=== PATIENT | female | born 1940 | race Caucasian/White ===

== ENCOUNTER 2018-11-13 18:45 | Inpatient (IN) | payer SELFPAY ==
[~2018-11-13] VITALS: Ht 154.9 cm; Wt 96.8 kg
[2018-11-13] MEDS ORDERED: FURO40 PO (19:00)
[2018-11-13] MEDS ORDERED: RIVA10 PO (19:00)
[2018-11-13] MEDS ORDERED: ASPIRIN 81 MG CHEWABLE TABLET PO ONE (19:00)
[2018-11-13 19:22] LABS: EOSINOPHILS % (AUTO) 1.5 % (1.0-6.0); HEMATOCRIT 41.3 % (36-46); LYMPHOCYTES # (AUTO) 1.2 K/uL (1.0-4.8); LYMPHOCYTES % (AUTO) 22.9 % (22.0-44.0); MEAN CORPUSCULAR HEMOGLOBIN 33.9 pg (26.0-34.0); MEAN CORPUSCULAR HGB CONC 33.9 G/dL (31.0-37.0); MEAN CORPUSCULAR VOLUME 100 fL (80-100); MONOCYTES # (AUTO) 0.5 K/uL (0.1-1.0); MONOCYTES % (AUTO) 9.4 % (2.0-9.0); NEUTROPHILS # (AUTO) 3.3 K/uL (1.8-7.7); NEUTROPHILS % (AUTO) 65.2 % (40.0-70.0); RED BLOOD CELL COUNT(AUTO) 4.13 MIL/uL (4.00-5.20); RED CELL DISTRIBUTION WIDTH 14.3 % (11.5-14.5)
[2018-11-13 20:13] LABS: ANION GAP 10 mmol/L (8-16); CALCIUM, TOTAL 9.6 mg/dL (8.8-10.5); CARBON DIOXIDE 27 mmol/L (22-29); CHLORIDE 107 mmol/L (98-107); CREATININE 0.87 mg/dL (0.60-1.30); GLUCOSE,RANDOM 123 mg/dL (70-110); POTASSIUM 3.7 mmol/L (3.5-5.1); SODIUM SERUM 144 mmol/L (136-145); UREA NITROGEN, BLOOD 21 mg/dL (7-18)
[2018-11-13 20:15] LABS: GLOMERULAR FILTR. RATE CALC > 60 mL/min (>60)
[2018-11-13 20:20] LABS: ALANINE AMINOTRANSFERASE 25 U/L (12-78); ALBUMIN 3.4 g/dL (3.4-5.0); ALKALINE PHOSPHATASE 95 U/L (46-116); ASPARTATE AMINOTRANSFERASE 22 U/L (15-37); BILIRUBIN,TOTAL 0.7 mg/dL (0.1-1.0); CREATINE KINASE, TOTAL ONLY 46 U/L (26-192); TOTAL PROTEIN, SERUM 7.9 g/dL (6.4-8.2)
[2018-11-13 20:36] LABS: B-TYPE NATRIURETIC PEPTIDE 253 pg/mL (0-100)
[2018-11-13 20:48] LABS: PLATELET COUNT (AUTO) 89 K/uL (150-450)
[2018-11-13] MEDS ORDERED: IOVERSOL 320 MG/ML 100 ML VIAL ONE (21:33)
[2018-11-14] VITALS (7 sets, daily range): BP systolic 104–144; BP diastolic 68–83
[2018-11-14] MEDS ORDERED: ACETAMINOPHEN 325 MG TABLET PO PRN ×2 (01:30→02:15)
[2018-11-14] MEDS ORDERED: FUROSEMIDE 40 MG/4 ML VIAL IVP ONE (01:30)
[2018-11-14] MEDS ORDERED: 0.9% SODIUM CHLORIDE 10 ML SYRINGE IVP PRN (01:30)
[2018-11-14] MEDS ORDERED: OXYGEN THERAPY IH SCH (01:30)
[2018-11-14] MEDS ORDERED: ONDANSETRON HCL 4 MG/2 ML VIAL IVP PRN ×2 (01:30→02:15)
[2018-11-14] MEDS ORDERED: ZOLPIDEM TARTRATE 5 MG TABLET PO PRN (02:15)
[2018-11-14] MEDS ORDERED: IPRATROPIUM BROMIDE 0.5 MG/2.5 ML NEB SOLUTION NEB PRN (02:15)
[2018-11-14] MEDS ORDERED: ALBUTEROL SULFATE 2.5 MG/0.5 ML NEB SOLUTION NEB PRN (02:15)
[2018-11-14] MEDS ORDERED: MORPHINE SULFATE 2 MG/ML SYRINGE IVP PRN (02:15)
[2018-11-14] MEDS ORDERED: BISACODYL 10 MG RECTAL RECTAL SUPPOSITORY PR PRN (02:15)
[2018-11-14 02:40] LABS: APPEARANCE,URINE CLEAR (CLEAR); BILIRUBIN,URINE NEGATIVE (NEGATIVE); GLUCOSE, URINE (UA) NEGATIVE (NEGATIVE); KETONES,URINE NEGATIVE (NEGATIVE); LEUKOCYTE ESTERASE ,URINE NEGATIVE (NEGATIVE); NITRATE,URINE NEGATIVE (NEGATIVE); OCCULT BLOOD,URINE NEGATIVE (NEGATIVE); PROTEIN,URINE NEGATIVE (NEGATIVE)
[2018-11-14] MEDS: FAMOTIDINE 20 MG TABLET PO SCH (08:57)
[2018-11-14] MEDS: FUROSEMIDE 40 MG TABLET PO SCH (08:57)
[2018-11-14] MEDS: OxyCODONE HCL/ACETAMINOPHEN 5-325 MG TABLET PO PRN ×2 (08:57→16:42)
[2018-11-14] MEDS ORDERED: HEPARIN SODIUM,PORCINE 5,000 UNITS/ML VIAL SQ SCH (09:00)
[2018-11-14] MEDS ORDERED: RIVAROXABAN 10 MG TABLET PO SCH (18:00)
[2018-11-14] MEDS: MAGNESIUM HYDROXIDE SUSPENSION 30 ML UDCUP PO PRN (23:48)
[2018-11-15 04:16] VITALS: BP 101/50
[2018-11-15] MEDS: OxyCODONE HCL/ACETAMINOPHEN 5-325 MG TABLET PO PRN (04:48)
[2018-11-15 06:12] LABS: BASOPHILS % (AUTO) 0.3 % (0.0-2.0); EOSINOPHILS % (AUTO) 1.7 % (1.0-6.0); HEMATOCRIT 39.8 % (36-46); HEMOGLOBIN 13.5 g/dL (12.0-16.0); LYMPHOCYTES # (AUTO) 0.9 K/uL (1.0-4.8); LYMPHOCYTES % (AUTO) 20.3 % (22.0-44.0); MEAN CORPUSCULAR HEMOGLOBIN 34.1 pg (26.0-34.0); MEAN CORPUSCULAR HGB CONC 33.8 G/dL (31.0-37.0); MEAN CORPUSCULAR VOLUME 101 fL (80-100); MONOCYTES # (AUTO) 0.5 K/uL (0.1-1.0); MONOCYTES % (AUTO) 10.4 % (2.0-9.0); NEUTROPHILS # (AUTO) 3.1 K/uL (1.8-7.7); NEUTROPHILS % (AUTO) 67.3 % (40.0-70.0); PLATELET COUNT (AUTO) 73 K/uL (150-450); RED BLOOD CELL COUNT(AUTO) 3.94 MIL/uL (4.00-5.20); RED CELL DISTRIBUTION WIDTH 13.8 % (11.5-14.5)
[2018-11-15 06:17] LABS: INR 1.2 (0.9-1.1); PROTHROMBIN TIME 12.5 SEC (9.4-11.6)
[2018-11-15 06:58] VITALS: BP 116/70
[2018-11-15 06:58] LABS: ALANINE AMINOTRANSFERASE 66 U/L (12-78); ALBUMIN 3.2 g/dL (3.4-5.0); ALKALINE PHOSPHATASE 89 U/L (46-116); ANION GAP 4 mmol/L (8-16); ASPARTATE AMINOTRANSFERASE 70 U/L (15-37); BILIRUBIN,TOTAL 1.7 mg/dL (0.1-1.0); CALCIUM, TOTAL 8.9 mg/dL (8.8-10.5); CARBON DIOXIDE 33 mmol/L (22-29); CHLORIDE 99 mmol/L (98-107); CREATININE 0.76 mg/dL (0.60-1.30); GLUCOSE,RANDOM 104 mg/dL (70-110); PHOSPHORUS 3.5 mg/dL (2.5-4.9); POTASSIUM 3.9 mmol/L (3.5-5.1); SODIUM SERUM 136 mmol/L (136-145); TOTAL PROTEIN, SERUM 7.7 g/dL (6.4-8.2); UREA NITROGEN, BLOOD 18 mg/dL (7-18)
[2018-11-15 06:59] LABS: GLOMERULAR FILTR. RATE CALC > 60 mL/min (>60)
[2018-11-15 07:04] LABS: B-TYPE NATRIURETIC PEPTIDE 194 pg/mL (0-100)
[2018-11-15 07:21] LABS: HEMOGLOBIN A1C 5.5 % (4.5-6.2)
[2018-11-15] MEDS ORDERED: METOPROLOL SUCCINATE 25 MG ER TABLET PO SCH (09:00)
[2018-11-15] MEDS: FAMOTIDINE 20 MG TABLET PO SCH (09:36)
[2018-11-15] MEDS: FUROSEMIDE 40 MG TABLET PO SCH (09:36)
[2018-11-15 11:37] VITALS: BP 105/66
[2018-11-15] MEDS: MAGNESIUM HYDROXIDE SUSPENSION 30 ML UDCUP PO PRN (13:30)
[2018-11-15 14:59] VITALS: BP 112/72
[2018-11-15] MEDS ORDERED: METO25XL PO (17:09)
[2018-11-15] MEDS ORDERED: SLOWK8 PO (17:10)
== END 2018-11-15 18:00 | disposition home or self-care (01) | DRG 292 ==
LOC: EMS 18:46 → 5S 11-14 01:27
PROVIDERS: ADMIT Internal Medicine; ATTEND Internal Medicine
DX: I11.0 Hypertensive heart disease with heart failure (principal); Z68.41 Body mass index [BMI] 40.0-44.9, adult; I50.9 Heart failure, unspecified; D69.6 Thrombocytopenia, unspecified; R73.9 Hyperglycemia, unspecified; K57.90 Diverticulosis of intestine, part unspecified, without perforation or abscess without bleeding; E66.9 Obesity, unspecified; F41.9 Anxiety disorder, unspecified; Z82.49 Family history of ischemic heart disease and other diseases of the circulatory system; Z90.49 Acquired absence of other specified parts of digestive tract; Z95.1 Presence of aortocoronary bypass graft
CPT/HCPCS: 71275; 83036; 83735; 84100; 85379; 93005; 93306; 93970; 96374; G0378; J1940